=== PATIENT | male | born 1965 | race Caucasian/White ===

== ENCOUNTER 2020-08-18 02:36 | Outpatient (CLI) | payer OTHER, SELFPAY ==
--- NOTE | 2020-08-18 12:23 | DI.RAD_ITS ---
EXAM: XR CHEST 2V PA LATERAL CLINICAL HISTORY: CHRONIC RHINITIS, SOB, COUGH,R05,R06.02,J31.0 TECHNIQUE: 2D digital imaging was performed. COMPARISON: No exams were available for comparison FINDINGS: There is reported sleep apnea monitor control or position over the anterior thorax. Transponder is a lso present over the anterior thorax on the right. The heart is not enlarged. Lungs are predominantly clear, however there is question of faint promine nce interstitial markings in the lung bases bilaterally, interstitial infiltrate not excluded. No gr oss focal consolidation seen.. No pleural effusion seen. Mediastinal contours appear intact. IMPRESSION: Question mild patchy interstitial infiltrates in the lung bases, pneumonitis versus chronic changes. Follow-up films recommended. No prior films available for comparison. RADIATION DOSE DELIVERED: Total DLP
== END 2020-08-18 02:56 ==
PROVIDERS: PCP Otolaryngology Otolaryngology/Facial Plastic Surgery; Visit Provider Otolaryngology Otolaryngology/Facial Plastic Surgery
DX: R91.8 Other nonspecific abnormal finding of lung field (principal); R05 Cough; R06.02 Shortness of breath; J31.0 Chronic rhinitis
CPT/HCPCS: 71046

== ENCOUNTER 2020-08-24 02:02 | Outpatient (CLI) | payer OTHER, SELFPAY ==
[2020-08-25 20:59] LABS: COVID-19 RT-PCR UVMMC Result Negative (Negative)
== END 2020-08-24 02:22 ==
PROVIDERS: PCP Otolaryngology Otolaryngology/Facial Plastic Surgery; Visit Provider Family Medicine
DX: Z11.59 Encounter for screening for other viral diseases (principal); Z01.811 Encounter for preprocedural respiratory examination
CPT/HCPCS: U0003

== ENCOUNTER 2020-08-28 01:39 | Outpatient (CLI) | payer OTHER, SELFPAY ==
[2020-08-28] MEDS: Albuterol HFA 18 GM 200 PUFF INH IH (11:11)
[2020-08-28] MEDS: Inhaler, Assist Device 1 EACH MC (11:12)
--- NOTE | 2020-08-31 08:36 | W.PFT ---
Date of service: 08/28/20 Time of Service: 10:23 Pulmonary Function Test Result Interpretation Spirometry: Shows no evidence of obstructive airways disease, no bronchodilator response Lung Volumes: No evidence of restriction Diffusion Capacity: Normal Airway Pressure: Normal Impression Normal pulmonary function study Clinical Correlation therefore is recommended.
== END 2020-08-28 01:59 ==
PROVIDERS: Visit Provider Otolaryngology Otolaryngology/Facial Plastic Surgery
DX: R05 Cough (principal); R06.02 Shortness of breath; J31.0 Chronic rhinitis
CPT/HCPCS: 94060; 94726; 94729

== ENCOUNTER 2020-08-28 02:29 | Outpatient (CLI) | payer OTHER, SELFPAY ==
[2020-08-28 12:13] LABS: Hemoglobin A1C 5.6 % (<5.7)
[2020-08-28 13:08] LABS: ALT 103 U/L (16-63); AST 40 U/L (15-37); Albumin 4.3 g/dL (3.4-5.0); Alkaline Phosphatase 58 U/L (46-116); Anion Gap 8.5 mmol/L (3-11); BUN 20 mg/dL (7-18); Bilirubin, Total 0.7 mg/dL (0.2-1.0); CO2 29.5 mmol/L (21.0-32.0); CREATININE 1.29 mg/dL (0.70-1.30); Calcium 9.1 mg/dL (8.5-10.1); Chloride 105 mmol/L (98-107); Estimated GFR 57.41 (mL/min/1.73m2); Folate 17.7 ng/mL (8.6-20.0); Glucose 101 mg/dL (74-106); Potassium 4.3 mmol/L (3.5-5.1); Sodium 143 mmol/L (136-145); Total Protein 7.2 g/dL (6.4-8.2); Vitamin B12 1149 pg/mL (193-986)
[2020-08-31 05:53] LABS: Vitamin D 25 Total 21.6 ng/ml (30-100)
== END 2020-08-28 02:49 ==
PROVIDERS: Visit Provider Internal Medicine Sleep Medicine
DX: R53.83 Other fatigue (principal); R41.3 Other amnesia; E55.9 Vitamin D deficiency, unspecified; Z13.1 Encounter for screening for diabetes mellitus
CPT/HCPCS: 36415; 80053; 82306; 82607; 82746; 83036; 84443

== ENCOUNTER 2020-09-10 01:59 | Outpatient (CLI) | payer OTHER, SELFPAY ==
--- NOTE | 2020-09-10 19:40 | DI.RAD_ITS ---
EXAM: XR CHEST 2V PA LATERAL CLINICAL HISTORY: CHRONIC COUGH, F/U PREVIOUS WITH FINDINGS. TECHNIQUE: 2D digital imaging was performed. COMPARISON: CR XR CHEST 2V PA LATERAL from 08/18/2020 FINDINGS: Heart size is normal. The mediastinum is not widened. Sleep apnea monitor over the anterior thorax is again noted. Transponder is also present over the an terior right chest. Present study is at better inspiration in the previous and reveals clear lungs with no infiltrates no r pleural effusions are no evidence of pulmonary edema. There is no pneumothorax. IMPRESSION: No acute pulmonary findings.Better inspiration than the previous study. DATA REPOSITORY: RADIATION DOSE DELIVERED:
== END 2020-09-10 02:19 ==
PROVIDERS: Visit Provider Family Medicine
DX: R05 Cough (principal); R91.8 Other nonspecific abnormal finding of lung field
CPT/HCPCS: 71046

== ENCOUNTER 2020-10-13 03:10 | Outpatient (CLI) | payer OTHER, SELFPAY ==
[2020-10-13 12:42] LABS: Abs Immature Grans 0.02 10^3/uL (0.0-0.06); Absolute Basophil Count 0.05 10^3/uL (0.0-0.2); Absolute Eosinophil Count 0.32 10^3/uL (0.0-0.7); Absolute Lymphocyte Count 2.32 10^3/uL (1.2-3.4); Absolute Monocyte Count 0.67 10^3/uL (0.1-0.8); Absolute Neutrophil Count 3.27 10^3/uL (1.2-6.7); Basophils % 0.8; Eosinophils % 4.8; HCT 46.4 % (40.0-50.0); HGB 16.2 g/dL (13.5-17.5); Immature Grans % 0.3; Lymphocytes % 34.9; MCH 30.9 pg (27.0-33.0); MCHC 34.9 % (32.0-36.0); MCV 88.4 fL (80-95); MPV 9.2 fL (8.0-11.0); Monocytes % 10.1; Neutrophils % 49.1; Nucleated RBC 0 %; Platelet Count 247 10^3/uL (130-400); RBC 5.25 10^6/uL (4.36-5.78); RDW-SD 42.2 fL; WBC 6.65 10^3/uL (4.4-10.8)
[2020-10-13 13:08] LABS: Calculated LDL 98 mg/dL (<100); Cholesterol 149 mg/dL (<200); HDL Cholesterol 37 mg/dL (40-60); Triglyceride 74 mg/dL (<150)
== END 2020-10-13 03:11 | disposition home or self-care (01) ==
PROVIDERS: PCP Family Medicine; Visit Provider Family Medicine
DX: R06.00 Dyspnea, unspecified (principal); Z13.220 Encounter for screening for lipoid disorders; Z82.49 Family history of ischemic heart disease and other diseases of the circulatory system
CPT/HCPCS: 36415; 80061; 85025

== ENCOUNTER 2020-11-10 02:11 | Outpatient (CLI) | payer OTHER, SELFPAY ==
--- NOTE | 2020-11-10 08:18 | DI.US_ITS ---
APPROVED REPORT EXAM: Comprehensive 2D, Doppler, and color-flow Echocardiogram Patient Location: Out-Patient Court Stenographer: Babs Medina RDCS (AE) Indications: Dyspnea on Exertion Other Information Study Quality: Adequate Conclusion Left Ventricle : The left ventricle is normal size. The left ventricular systolic function is normal. The left ventricular ejection fraction is within the normal range. There is normal left ventricular wall thickness. There is normal LV segmental wall motion. The left ventricular diastolic function is normal. LVEF is 60-65%. Right Ventricle : The right ventricle is normal size. The right ventricular systolic function is norm al. The RVSP is 28.4mmHg. Atria : The left atrium size is normal. The right atrium size is normal. Mitral Valve : The mitral valve is normal in structure. Trace to mild mitral regurgitation. No eviden ce of mitral valve stenosis. Great Vessels : The aortic root is normal in size. The ascending aorta is normal in size. Aortic arch is normal in caliber. IVC is normal in size and collapses >50% with inspiration. Please see remainder of study for further details. Wall motion Left Ventricle The left ventricle is normal size. The left ventricular systolic function is normal. The left ventric ular ejection fraction is within the normal range. There is normal left ventricular wall thickness. T here is normal LV segmental wall motion. The left ventricular diastolic function is normal. There is no ventricular septal defect visualized. LVEF is 60-65%. Right Ventricle The right ventricle is normal size. The right ventricular systolic function is normal. The RVSP is 28 .4mmHg. Atria The left atrium size is normal. The right atrium size is normal. The interatrial septum is intact wit h no evidence for an atrial septal defect. Aortic Valve The aortic valve is normal in structure. Aortic valve is trileaflet. There is no aortic valvular sten osis. No aortic regurgitation is present. Mitral Valve The mitral valve is normal in structure. No evidence of mitral valve stenosis. Trace to mild mitral r egurgitation. Tricuspid Valve The tricuspid valve is normal in structure. There is no tricuspid valve stenosis. Mild tricuspid regu rgitation. Pulmonic Valve The pulmonary valve is normal in structure. There is no pulmonic valvular stenosis. Trace pulmonic re gurgitation. Great Vessels The aortic root is normal in size. The ascending aorta is normal in size. Aortic arch is normal in ca liber. IVC is normal in size and collapses >50% with inspiration. Pericardium There is no pericardial effusion. 2D Dimensions IVSD d PLAX 0.90 cm M: 0.6-1.2 LV Vol A2C d MOD 117.9 mL LVPW d PLAX 1.00 cm M: 0.6 - 1.2 LV Vol A4C d MOD 100.4 mL LVID d PLAX 4.72 cm M: 4.2 - 5.8 LA vol/ BSA A2C s A-L 30.4 mL/m2 LVDs 3.10 cm M: 2.5 - 4.0 LA vol/ BSA A4C s A-L 20.2 mL/m2 Ao Root d 3.32 cm M: 3.1 - 3.7 LA Vol/ BSA Biplane s A-L 24.9 mL/m2 RA Area A4C 13.52 cm2 LA Area A4C s MOD 16.45 cm2 RA Vol/ BSA A4C s A-L 16.2 mL/m2 LA Area A2C s MOD 20.09 cm2 Ao Asc Diam d 3.51 cm M: 2.6 - 3.4 LV EF A4C MOD 60.1 % LV EF Teichholz 63.0 % LV EF A2C MOD 64.3 % LVEF (Cedeno's) 60.99 % M: 52 - 72 LV EF Biplane MOD 61.0 % LV Volume 82.43 mL M: 62 - 150 SV 69.09 mL LV Volume Index 37.63 mL/m2 M: 34 - 74 SV Index 31.46 mL/m2 LV Vol Biplane MOD 113.3 mL FS 34.05 % M-Mode TAPSE 2.26 cm (M/F) >1.7 LV Diastology MV E' medial 0.071 (>0.07 m/s) E/A Ratio 0.9 LV E/e MED 7.90 (<14) MV E Vmax 0.56 (0.4-1.3 m/s) MV E' lateral 0.116 (>0.1 m/s) MV A Vmax 0.60 (0.4-1.3 m/s) LV E/e LAT 4.85 (<14) MV E/A Ratio 0.94 MV E/E' medial 7.91 MV E/E' lateral 4.85 Aortic Valve LVOT Area 3.36 cm2 AoV Area Vmax 2.25 cm2 LVOT Vmax 0.96 m/s AoV Area/ BSA (Vmax) 1.03 cm2/m2 LVOT Mean Justino. 0.61 m/s SALVADOR Mean Justino. 2.11 cm2 LVOT Peak Grad 3.7 mmHg SAL[place]ADOR Mean Justino. Index 0.96 cm2/m2 LVOT Mean Grad 1.8 mmHg LVOT VTI 0.201 m LVOT Diam s 2.05 cm AoV Vmax 1.43 m/s Velocity Ratio 0.67 AoV Mean Justino. 0.97 m/s AoV Peak Grad 8.2 mmHg LVOT SV 67.55 mL AoV Mean Grad 4.2 mmHg AoV VTI 0.293 m AoV Area VTI 2.30 cm2 AoV Area/ BSA (VTI) 1.05 cm/m2 Mitral Valve MV DT 263 (160-240 msec) MV PHT 76 msec MV Area PHT 2.88 cm2 MV VTI 0.248 m MV Area VTI 2.73 (4.0-6.0 cm2) Pulmonary Valve PV Vmax 1.26 (0.5-1.5 m/s) RVOT Peak Gr. 1.26 mmHg PV Peak Grad 6.4 mmHg RVOT Mean Gr. 0.60 mmHg PV Mean Grad 3.4 mmHg RVOT VTI 0.127 m PV VTI 0.230 m RVOT Vmax 0.56 m/s Tricuspid Valve TR Peak Grad 25.3 mmHg TR Vmax 2.52 m/s RA Pressure 3.00 mmHg RVSP (TR) 28.4 mmHg
== END 2020-11-10 02:31 ==
PROVIDERS: PCP Family Medicine; Visit Provider Family Medicine
DX: R06.00 Dyspnea, unspecified (principal); I34.0 Nonrheumatic mitral (valve) insufficiency
CPT/HCPCS: 93306

== ENCOUNTER 2020-12-30 14:36 | Outpatient (CLI) | payer OTHER, SELFPAY ==
--- NOTE | 2020-12-30 14:30 | DI.RAD_ITS ---
EXAM: XR SHOULDER LT COMPLETE 2+V CLINICAL HISTORY: left shoulder pain. TECHNIQUE: 2D digital imaging was performed. COMPARISON: No exams were available for comparison FINDINGS: There is no evidence of fracture nor dislocation. No obvious degenerative changes in the glenohumera l joint. No soft tissue calcifications in the subacromial space. Some small calcific densities are noted within the AC joint space. No osseous lesions. Incidentally noted is what appears to be a vagal nerve stimulator. IMPRESSION: DATA REPOSITORY: RADIATION DOSE DELIVERED:
== END 2020-12-30 14:37 | disposition home or self-care (01) ==
LOC: DIORS 14:36
PROVIDERS: PCP Family Medicine; Referring Provider Family Medicine; Visit Provider Student in an Organized Health Care Education/Training Program
DX: M25.512 Pain in left shoulder (principal)
CPT/HCPCS: 73030

== ENCOUNTER 2021-08-06 10:01 | Outpatient (CLI) | payer OTHER, SELFPAY ==
--- OUTSIDE RECORDS SUMMARY | 2021-08-06 10:05 | XMS_ITS ---
:1965 Author Care Team Providers Name Role Phone DEMETRIS ALFARO ([facility]) Primary Care Provi pia [phone] [facility] Primary Care Provider [phone] PHAN LICEA DO OTHER [phone] Allergies Code Code System Name Reaction Severity Status Onset 3640 RxNorm Doxycycline ? ? Active ? Medications Name Status Start Date Stop Date ? ? azelastine Active ? Not available febuxostat 80 mg tablet Active ? Not avai lable Take 1 tablet every day by oral route. finasteride 5 mg tablet Active ? Not avai lable Take 1 tablet every day by oral route. Flonase Allergy Relief 50 mcg/actuation nasal spray,suspension A ctive ? Not available [place] 1 spray every day by intranasal route. hydrochlorothiazide 12.5 mg tablet Active ? Not available Take 1 tablet every day by oral route. Low Dose Aspirin 81 mg tablet,delayed release Active ? Not available Take 1 tablet every day by oral route. Lunesta 3 mg tablet Active ? Not availabl e Take 1 tablet as needed by oral route at bedtime. valacyclovir 1 gram tablet Active ? Not a vailable Take 1 tablet every 12 hours by oral route. zolpidem 10 mg tablet Completed ? 11/16/2020 Take 1 tablet every day by oral route. Problems Name Status Onset Date Source ? Gout Active 07/02/2020 ? Anxiety Active 07/02/2020 ? Insomnia Active 07/02/2020 ? Hypertensive Disorder Active 07/02/2020 ? Esophagitis Active 07/02/2020 ? Alopecia Active 07/02/2020 ? Low Back Pain Active 07/02/2020 ? Sleep Apnea Active 07/02/2020 ? Headache Active 07/02/2020 ? Cough Active 07/02/2020 ? Memory Finding Active 07/02/2020 ? Palpation Active 07/02/2020 ? Attention Deficit Hyperactivity Disorder, Active 2019 ? Predominantly Inattentive Type Procedures None recorded. Results Lab Results None recorded. Past Encounters 07/19/2021 Obstructive Sleep Apnea Syndrome; Memory Impairment Idalmis Winkler MD, Board Certified Sleep Ph ysician: [address] [place] [phone], Ph. 05/24/2021 Obstructive Sleep Apnea Syndrome; Persis tent Cough; Memory Impairment Idalmis Winkler MD, Board Certified Sleep Ph ysician: [address] [place] [phone], Ph. 01/18/2021 Obstructive Sleep Apnea Syndrome; Persis tent Cough; Memory Impairment Idalmis Winkler MD, Board Certified Sleep Ph ysician: [address] [place] [phone], Ph. 11/16/2020 Obstructive Sleep Apnea Syndrome; Persis tent Cough; Memory Impairment Idalmis Winkler MD, Board Certified Sleep Ph ysician: [address] [place] [phone], Ph. 08/24/2020 Obstructive Sleep Apnea Syndrome; Persis tent Cough; Memory Impairment; Diabetes Mellitus Screening; Decreased Vitamin D; Fatigue Idalmis Winkler MD, Board Certified Sleep Ph ysician: [address] [place] [phone], Ph. Social History Tobacco Smoking Status Never Smoker Vaccine List None recorded. Plan of Care Patient Instructions Follow-up as needed. Plan for trans [place] [facility] care to [facility] if they are able to accept him as they are now a [facility] We will plan for an initial home sl eep study to get a prelminary idea of whether the current [employer] settings that you can tolerate (you think at level 4) Please record the following data for the home sleep study; TIME YOU TURNED ON DEVICE DEVICE NICOLE PERIOD 1H15M TIME YOU TURNED OFF DEVICE DEVICE SETTING (HOW MANY BARS) We will also coordinate with [employer] to do an in lab sleep study here titrating your INSPIRE device Follow up 3 month, sooner if needed Reminders Provider Appointments None recorded. ? ? Lab None recorded. ? ? Referral None recorded. ? ? Procedures None recorded. ? ? Surgeries None recorded. ? ? Imaging None recorded. ? ? Vitals 07/19/2021 02:30PM Office 30 Height Weight BMI Blood Pressure 182.88 cm 97.52 kg 29.2 kg/m2 148/95 mm[Hg] 05/24/2021 10:00AM Office 30 Height Weight BMI Blood Pressure 182.88 cm 99.79 kg 29.8 kg/m2 137/94 mm[Hg] 01/18/2021 10:45AM Office 30 Height Weight BMI Blood Pressure 182.88 cm 99.79 kg 29.8 kg/m2 140/80 mm[Hg] 11/16/2020 03:15PM New Patient 43 Height Weight BMI Blood Pressure 182.88 cm 99.79 kg 29.8 kg/m2 128/89 mm[Hg] 08/24/2020 10:30AM New Patient 43 Height Weight BMI Blood Pressure 182.88 cm 102.06 kg 30.5 kg/m2 120/80 mm[Hg]
--- OUTSIDE RECORDS SUMMARY | 2021-08-06 10:05 | XMS_ITS | Encounter Summary ---
:1965 Author Care Team Providers Name Role Phone Troy Dickson ([facility]) Primary Care Provi pia [phone] [facility] Medical Records Primary Care Provider [phone] Ja Prado DO OTHER [phone] Reason for Visit None recorded. Assessment and Plan Assessment Note I provided greater than 40 minutes in e care of this patient, more than half the time was in face to face counseling and additional time with care coordination 1. Obstructive sleep apnea syndr ome 08/24/20 transition to care, p t with very complex sleep apnea history, initially dx'ed w/ SEVERE mixed sleep apnea on HST, then tried/failed bipap-ST, then used ASV successfully but needed andrew esta to tolerate (tried many masks inclu ding ffm and nasal pillows). he then had in lab PSG to qualify for INSPIRE, switched to INSPIRE implantable device, but then moved to [place] and did not get adequate follow up. only able to tolerate level 3 at this point). Meantime due to c/o return of memory imp airment that was better on ASV but worse off any ashley tx * re-start ASV at Min EPAP 6 Max EPAP 12 PSmin 3 PSmax 10. data review suggest good tx AHI 2.6/hr * mask: gave him brevida nasal pillows t o try at home. * Rx'ed Lunesta 3mg so he can use with A SV (not ideal but confirmed on chart review and w/ pt, this has been the way for him to use it) * contact INSPIRE to see if we can do ti tration study in lab for the INSPIRE device here, as pt was told to go to [facility] and they are out of network for his insurance and [facility] which has long waitlist 11/16/20 : used ASV but stopped due to all ergies and difficulty tolerating mask from allergies. will refill lunesta in case he needs it to tolerate INSPIRE, tho pt prefers not to be on it. with device REp from [facility] Washington, INSPIRE adju stment made, dec amplitude to 1.6 (functional setting), control range 1.4 to 2.4V, pulse width changed to 120microsec, start delay and pause time same at 75m/15m and duration same at 8hrs. Pt noted this was much better. will see how he does on INSPIRE at new setting. f/u 6 to 8 weeks 01/18/21: pt reports increased tolerance and compliance from 3 to 5 days per week, usu wearing til midnight to 4am when able to use INSPIRE. he's at level 4 on his remote (est 1.8 V). notes he tried adva nced further but not tolerated and went back to the 4 setting. *Home sleep study with inspire. *awake endoscopy with inspire trained EN T d/w pt but his insurance coverage this year may pose challenge due to OON status (Dr Tai at [facility] could do this) 05/24/21: went over HST results, suggesti ng at 5 on his INSPIRE< still has residual events. he is now at 6. we will have another HST planned in late May/early Jun, contacted Nancy Washington, [facility] bauer, to arrange for mechanical engineering technologist, waiting to hear back. 07/19/2021: Meeting with inspire and going over home sleep study results. Does show inspire at 2.4 V is having benefit with treatment AHI 7.4 on home study, when compared to his AHI of 20/h on PSG pr ior to inspire placement. The difficulty mainly being patient feeling the inspire is waking him up around 2 AM and he is not able to go back to sleep until he turns it off. He is already on long-acting sleep aid, so I do not think we can opti ulises more. Moreover patient would rather get off the sleep aid and I agree that a sleep aid should not be needed long- term to tolerate using the device. For now will refill Lunesta. Plan as follows: 1. Nancy Washington will check with ENT Dr. Castro at [facility] to see whether they will do the awake endoscopy to evaluate for optimization for patient that did not have placement at their center. She will al so let me know the referral paperwork wh leslie to send to, and I will follow up with us. She will also let us know the wait time to get in. 2. If the wait time is more than ~month, recommend Nancy work with the patient directly to get him on more comfortable settings. It is okay for them to use my office if she prefers to do that. ? sleep apnea: care instruct ions ? Lunesta 3 mg tablet 2. Memory impairment 08/24/20: reports when he was compliant on ASV, it helped. but he switched to INSPIRE and due to intolerance/not optimized yet on this. he notes return of sxs. i don't see lab work done to w/o for this, will order some today, pt was agreeable 08/28/20: folate nl 17; b12 1149 - all n l. vit D lower end of nl at 21; tsh 1.9 nl. he has been advised to be on vit d at 4000 iu daily for 30 days then maintenance at 2000 iu daily Discussion Note: None recorded. Plan of Care Patient Instructions Follow-up as needed. Plan for trans michaelle of care to [facility] if they are able to accept [facility] Provider Appointments None recorded. ? ? Lab None recorded. ? ? Referral None recorded. ? ? Procedures None recorded. ? ? Surgeries None recorded. ? ? Imaging None recorded. ? ? Medications Name Start Date ? ? azelastine ? febuxostat 80 mg tablet ? Take 1 tablet every day by oral route. finasteride 5 mg tablet ? Take 1 tablet every day by oral route. Flonase Allergy Relief 50 mcg/actuation nasal spray,quiñones spension ? [place]detown 1 spray every day by intranasal route. hydrochlorothiazide 12.5 mg tablet ? Take 1 tablet every day by oral route. Low Dose Aspirin 81 mg tablet,delayed release ? Take 1 tablet every day by oral route. Lunesta 3 mg tablet ? Take 1 tablet as needed by oral route at bedtime. valacyclovir 1 gram tablet ? Take 1 tablet every 12 hours by oral route. Medications Administered None recorded. Vitals Height Weight BMI Blood Pressure 6 ft 215 lbs 29.2 kg/m2 148/95 mm[Hg] Results Lab Results None recorded. Allergies Code Code System Name Reaction Severity Onset 4420 RxNorm Doxycycline ? ? ? Problems Name Status Onset Date Source ? [...] ? Predominantly Inattentive Type Procedures None recorded. Vaccine List None recorded. Social History Tobacco Smoking Status Never Smoker What is your level of alcohol None consumption? Live alone or with others? with others Are you currently employed? N Do you have any pets? Y Notes: dog Are you blind or do you have Y Notes: j ust reading glasses difficulty seeing? Are you deaf or do you have serious N difficulty hearing? Hard of hearing or deaf in one or N both ears? What is your level of caffeine Occasional Notes: few cups of coffee a consumption? day Functional Status Are you blind or do you Yes have difficulty seeing?? Past Encounters 07/19/2021 Obstructive Sleep Apnea Syndrome; Memory Impairment Idalmis Winkler MD, Board Certified Sleep Ph ysician: [address] [place] [address] [address], [place] [address], Ph. History of Present Illness Note: <div>
</div><div>
</div><p>Bc De Paz is a pleasant </p><div>{{____ 56#}} year old {{female male*}} who returns for [facility] follow up.

I requested Nancy Washington who is a rep from [facility] to be present for the meeting so we can help coordinate. She also invited Hai who is a regional rep from [facility]. They were both on zoom while the patient and I were in the clinic room.
</div><p>Medicalhistory includes ADHD, asthma, complex sleep apnea, depression, eosinophillic esophagitis, hypertension, neck pain, trigeminal neuralgia</p><div>
</div><p><strong> PREVIOUS SLEEP EVALUATION: </strong></p><div>
</div><div><b r></div><p>Sleep Clinic consultation on 08/30/2018 with Kerry Betancourt NP / Dr Delgado in [facility] in [facility], noted pt was recently diagnosed with severe complex sleep apneatreated w/ bipap ST 14/4cmH2O back up rate 10 bpm using full face mask during night of study. Difficulty tolerating bipap during sleep study, synchronizing w/ machine breaths, feeling like he'sblasting with air before he felt ready to take next breath. Cites issues w/ memory impairment, rls, insomnia. DME Rx for bipap 14/4cm br 10bpm. Also note</p><div>
</div><p>11/08/18 sleep clinic follow up with Hitesh Verduzco MD at [facility] in [place], note:</p><p>home sleep study 05/23/18 AHI 35/hr, 122 centrals, 39 obstructive, 1 mixed, 170 hypopneas (unclear obstructive or centrals). CPAP titration sleep study showed cpap worsened central apnea component and ultimately BIPAP ST 14/4 with rate 10bpm resulted in AHI 5.7/hr. Note pt had difficulty tolerating this pressure at home and also mask intolerance. Has some claustrophobia. Also note very bad insomnia for many years, was on zolpidem for years, but stopped due to concern of side efx. ESS 3. + morning headaches. Note he is on ASV machine, after ASV titration study reducing AHI to 5.1/hr, noted needing alprazolam to keep mask on, but no download and those results are not avail for review. Rx'ed lunesta 3m for short term use. If ASV fails, discussed transvenous phrenic nerve stimulation/remede device, would need diagnostic PSG with AHI >20 50% of centrals or more.</p><div>
</div><p>Diagnostic PSG on 10/01/2019 (Wt 219 lbs on last clinic note) showed AHI 20.5/hr, RDI 28.4/hr; REM AHI 16.7/hr, Central apnea index 4.7/hr. Baseline O2 93.6%. Juan O2 89%. No PLMD. PVCs seen.</p><div>
</div><p>Patient transitioned to my care on 08/24/2020, noted for having INSPIRE device activated but no follow up after that due to moving away from [place], not tolerating.</p><div>
</div><p>Home Sleep Study on INSPIRE 04/07/21 at level 4 on his remote (est 1.8 V), at wt 220 lbs.</p><div>
</div><p>1. Inconclusive home sleep study. Patient reported waking up at 2 am torealize he had not leanred INSPIRE device, and turned on around 2am, with mary period 1+ hour, hence likely had INSPIRE in effect at around 3:15am. Interestingly, there appeared to be more events in the second half of the night, but this could be due to increased REM sleep periods, which home sleep study is unable to evaluate.</p><div>
</div><p>2. Overall AHI: 4.6/hr; Supine AHI: 5/hr; Right Lateral AHI:4 /hr; Left Lateral AHI: 0/hr; Prone AHI: N/A/hr.</p><div>
</div><p>3. Mean SpO2: 95% and Juan SpO2: 92% on Room Air; 0.0 minutes spent with SpO2 less than or equal to 88% on Room Air.</p><div>
</div><p>4. Poor equipment placement for abdominal and chest belts, which were suboptimal for most of the night.</p><div>
</div><div>Repeat home sleep study on inspire level7 (equivalent to 2.4 V) pulse width 120 µs on 06/11/2021 at 220 pounds/BMI 29.8 showed:</div><div>1. Mild Residual Sleep Apnea associated with significant nocturnal hypoxemia. There wasa </div><div>lot of pulse oximetry artifact toward end of night so oxygen saturation levels may not be </div><div>accurate. Multiple respiratory events may also be missed as they could not be scored </div><div>without pulse oximetry data. The respiratory events appea red to be mostly obstructive, </div><div>but there may also be central apneic events that were not so clearly seen due to limitation </div><div>of HST and poor respiratory belt signals. </div><div>2. Overall AHI: 7.4/hr; Supine AHI: 7/hr; Right Lateral AHI:15 /hr; Left Lateral AHI: 4/hr; </div><div>Prone AHI: N/A/hr. </div><div>3. Mean SpO2:92% and Juan SpO2: 85% on Room Air; 18.9 minutes spent with SpO2 less </div><div>than or equal to 88% on Room Air. </div><div>
</div><p><strong>TODAY: USING INSPIRE, level 6. He went to level 7, but had to dial back to 6 because he would wake up around 2 AM and be woken up by the inspire. Even at 6 he is having this but less so compared to 7. That would be the equivalent of 2.3 V</strong></p><p>He is still relying on the sleep aidLunesta 3 mg to be able to sleep especially with the inspire </p><div>
</div> Review of Systems ? Notes: <p>A 14-point <strong>REVIEW OF SYSTEM</strong> was obtained and reviewed, includes CONSTITUTIONAL, EYE S, ALLERGY, NEUROLOGIC, ENDOCRINE, GI, CARDIOVASCULAR, SKIN, MSK, E NT, , RESPIRATORY, HEMATOLOGIC, PSYCH systems. Pertinent symptoms are discu ssed in history, otherwise negative.</p><div>He notes that perhaps there is a little bit of a cough reflex from the wires that he feels with the inspire</d iv> Physical Exam ? Notes: <p>GENERAL: </p><div>{{chron ically ill appearing well appearing#}}, appearing {{older than younger than st ated#}} age, no acute distress
HEENT: atraumatic skull, anicteric< br>RESPIRATORY: quiet respiration, able to speak in full sentences without dy spnea, no accessory muscle use,
SKIN: no facial skin rash, no facial skin le sions
PSYCHIATRIC: well groomed, fluent speech, good insight, linear thought process, good eye contact, {{flat balanced#}} affect
NEUROLOGIC: alert, oriented, symmetric facial expression

<strong>Cl inical Data Reviewed:</strong>

1. {{Modified Pediatric [place] Sleepiness Scale Rose[place] Sleepiness Scale*}}: 13 out of {{21 due to not drivi ng 24#}}vs 12 last visit
</div><div>
< /div><div>
</div><p>2. </p><div>{{Sleep study results not available, requested Unable to obtain sleep study reports No sleep study reports Sleep st udy results as above.#}}

3. {{Lab results as outlined. * Labs pending. }}
TSH 1.9; vit D level 21; Ha1c 5.6</div><div>
</div>< div>
</div><p>4. Reviewed ENT note: allergy test, allergitic rhinitis an d elevated bp. reacted to trees, weeds, grasses, molds, DM, animal dander. no te on tawanda, singulair, astelin.</p><div>
</div>< p>5. CXR ordered by Dr Prado on 08/18/20</p><p>note sleep private chef ea device on CXR over anterior thorax, transponder over anterior thorax on righ t. mild patchy interstitial infiltrates in lung bases, pneumonitis vs chroni c changes.</p><div>
</div><p>6. original configuration: functional th reshold at 1.6, moves tongue pass incisors</p><p>change pulse rate 1: functional threshold at 1.5</p><div>
</div><p> INSPIRE settings, amplitude at 2.0 V; Patient control 1.9 to 2.9 V; pulse width 90 micro sec; delay start 76m; pause time 15 m; therapy duration 8h</p><d iv>
</div><p>7. ASV data not obtained due to decreased usage and pt wants to focus on using INSPIRE going fwd</p>
--- OUTSIDE RECORDS SUMMARY | 2021-08-06 10:05 | XMS_ITS | Encounter Summary ---
:1965 Author Care Team Providers Name Role Phone Troy Dickson ([facility]) Primary Care Provi pia [phone] [facility] Medical Records Primary Care Provider [phone] Ja Prado DO OTHER [phone] Reason for Visit None recorded. Assessment and Plan Assessment Note I provided greater than 40 minutes in th e care of this patient, more than [...] INSPIRE implantable device, but [place] and did not get adequate follow up. Need to get repeat PSG to tit rate/very setting (he is only able to tolerate level 3 at this point). Meantime due to c/o return of memory imp airment that was better on ASV but worse off any ashley tx * re-start ASV at Min EPAP 6 Max EPAP 1 2 PSmin 3 PSmax 10. data review suggest good tx AHI 2.6/hr * mask: gave him brevida nasal pillows t o try at home. * get re-established w/ local DME compan y, chose [facility] if that one accepts his insurance. * Rx'ed Lunesta 3mg so he can use with A SV (not ideal but confirmed on chart review and w/ pt, this has been the way for him to use it) * contact [employer] to see if we can do ti tration study in lab for the INSPIRE device here, as pt was told to go to [facility] and they are out of network for his insurance and [facility] which has long waitlist 3/8/21 : used ASV but stopped due to all ergies and difficulty tolerating mask from allergies. thinks the mask i gave him last time wasn't right size (it's one size mask so likely not good fit). he is ne eding lunesta to tolerate Pap therapy. w ill refill lunesta in case he needs it to tolerate INSPIRE, tho pt prefers not to be on it. with device REp from [employer] [place], INSPIRE adjustment made, de c amplitude to 1.6 (functional setting), control range 1.4 to 2.4V, pulse width changed to 120microsec, start delay and pause time same at 75m/15m and duration same at 8hrs. Pt noted this was much aleida r. will see how he does on INSPIRE at ne w setting. f/u 6 to 8 weeks 01/18/21: pt reports increased tolerance and compliance from 3 to 5 days per week, usu wearing til midnight to 4am when able to use INSPIRE. he's at level 4 on his remote (est 1.8 V). notes he tried adva nced further but not tolerated and went back to the 4 setting. * arrange for home sleep study wearing I NSPIRE. will check if we have apnealink AIR HST kit which is the compliant model w/ his device * also d/w Nancy [place] getting download on INSPIRE device which she will arrange w/ pt separately and in lab PSG titration (pref optimize pt's setting/tolerance before we do in lab PSG). awake endoscop y also discussed but his insurance cover age this year may pose challenge due to OON status (Dr Tai at [facility] could do this) 05/24/21: went over HST results, suggesti ng at 5 on his INSPIRE< still has residual events. he is now at 6. we will have another HST planned in late May/early Jun, then arrnage for in lab PSG with IN SPIRE tech. contacted Nancy Washington, [employer] rep, to arrange for lead slot technician, waiting to hear back. ? sleep apnea: care instruct ions ? Lunesta 3 mg tablet ? Home Sleep Apnea Testing* - Second Home Sleep Study in preparation for In lab sleep study: Please document curr ent level on his remote. As of 05/24, he reported being on level 5. PLEASE NOTIFY FRANK AND ASK HIM TO REVIEW THIS CLOSELY as he is familiar w/ patient's case. Pt has INSPIRE device implanted in his chest. He needs home sleep study, the compatible m adri is ApneaLink Air - please check this is the new kits that we have and then set p atient up. He needs to DOCUMENT FOLLOWING ON HIS HST NIGHT: TIME YOU TURNED ON DEVICE DEVICE MARY PERIOD 1H15M TIME YOU TURNED OFF DEVICE DEVICE SETTING (HOW MANY BARS ) ? sleep study, baseline diag nostic polysomnogram* - Plan to do this in Jul 2021 at : * [facility]IRE patient. * Ple ase Assign Frank to this case, he's familiar w/ this patient's history. * need to arr lonny with [employer] lead slot technician who can be present on that night, I've contacted [facility] on 05/24/21 already, waiting for her reply. Instructions will be arra nged as we make further arrangements with [employer]. Need to document pat ient settings , will need documentation guidelines from [employer]. 2. Persistent cough 08/24/20: pending PFTs. Pt had CXR last week mild patchy interstitial infiltrates in lung bases, pneumonitis vs chronic changes. pt says he had CXR in past w/o this finding but dont have a ccess to those records from [place]. he was told he should seen pulmonary but waiting on PCP, who he still need to establish with. will do referral for Dr Smith in pulm. 11/16/20: pt cancelled this apptmt due to Dr Smith departure 3. Memory impairment 08/24/20: reports when he was [...] Discussion Note: None recorded. Plan of Care Reminders Provider Appointments None ? ? recorded. Lab None ? ? recorded. Referral None ? ? recorded. Procedures None ? ? recorded. Surgeries None ? ? recorded. Imaging None ? ? recorded. Medications Name Start Date ? ? azelastine ? febuxostat 80 mg tablet ? Take 1 tablet every day by oral route. finasteride 5 mg tablet ? Take 1 tablet every day by oral route. Flonase Allergy Relief 50 mcg/actuation nasal spray,quiñones spension ? [place] 1 spray every day by intranasal route. [...] Height Weight BMI Blood Pressure 6 ft 220 lbs 29.8 kg/m2 137/94 mm[Hg] Results Lab Results None recorded. Allergies Code Code System Name Reaction Severity Onset 3640 RxNorm Doxycycline ? ? ? Problems Name [...] you Yes have difficulty seeing?? Past Encounters 05/24/2021 Obstructive Sleep Apnea Syndrome; Persis tent Cough; Memory Impairment Idalmis Winkler MD, Board Certified Sleep Ph ysician: [address] [place] [address] Drive [address], [place] [address], Ph. History of Present Illness Note: <p><strong></strong>

Bc De Paz is a pleasant </p>{{55# ____}} year old {{female male*}} who returns for INSPIRE follow up.
<p></p><p>
Medical history includes ADHD, asthma, complex sleep apnea, depression, eosinophillic esophagitis, hypertension, neck pain, trigeminal neuralgia

<strong>PREVIOUS SLEEP EVALUATION: </strong></p><p></p><p></p><p>Sleep Cl inic consultation on 08/30/2018 with Kerry Betancourt FRAME FEEDER / Dr Hitesh Verduzco in [facility] in [place], noted pt was recently diagnosed with severe complex sleep apnea treated w/ bipap ST 14/4cmH2O back up rate 10 bpm using full face mask during night of study. Difficulty tolerating bipap during sleepstudy, synchronizing w/ machine breaths, feeling like he's blasting with air before he felt ready totake next breath. Cites issues w/ memory impairment, rls, insomnia. DME Rx for bipap 14/4cm br 10bpm. Also note</p><p>
</p><p>11/08/18 sleep clinic follow up with Hitesh Verduzco MD at [facility] in [place], note:</p><p>home sleep study 05/23/18 AHI 35/hr, 122 [...] alprazolam to keep mask on, but no downloadand those results are not avail for review. Rx'ed lunesta 3m for short term use. If ASV fails, discussed transvenous phrenic nerve stimulation/remede device, would need diagnostic PSG with AHI >20 50% of centrals or more.</p><p>
</p><p>Diagnostic PSG on 10/01/2019 (Wt 219 lbs on last clinic note) showed AHI 20.5/hr, RDI 28.4/hr; REM AHI 16.7/hr, Central apnea index 4.7/hr. Baseline O2 93.6%. Juan O2 89%. No PLMD. PVCs seen.</p><p>
</p><p>Patient transitioned to my care on 08/24/2020, noted for having INSPIRE device activated but no follow up after that due to moving away from [place], not tolerating.</p><p>
</p><p>Home Sleep Study on INSPIRE 04/07/21 at level 4 on his remote (est 1.8 V), at wt 220 lbs.</p><p>
</p><p>1. Inconclusive home sleep study. Patient reported waking up at 2 am to realize he had not leanred INSPIRE device, and turned on around 2am, with mary period 1+ hour, hence likely had INSPIRE in effect at around 3:15am. Interestingly, there appeared to be more events in the second half of the night, but this could be due to increased REM sleep periods, which home sleep study is unable to evaluate.
</p><p>2. Overall AHI: 4.6/hr; Supine AHI: 5/hr; Right Lateral AHI:4 /hr; Left Lateral AHI: 0/hr; Prone AHI: N/A/hr.<br& gt;</p><p>3. Mean SpO2: 95% and Juan SpO2: 92% on Room Air; 0.0 minutes spent with [id number] than or equal to 88% on Room Air.
</p><p>4. Poor equipment placement for abdominal and chest belts, which were suboptimal for most of the night.
</p><p>&lt ;br></p><p>
</p><p><strong>TODAY: USING INSPIRE, level 5, able to advance slightly, slowly</strong></p><p>on lunesta 3mg, no sleepeating or wa lking on this<strong></strong></p> Review of Systems ? Notes: <p>A 14-point <strong>REVIEW OF SYSTEM</strong> was obtained and reviewed, includes CONSTITUTIONAL, EYE S, ALLERGY, NEUROLOGIC, ENDOCRINE, GI, CARDIOVASCULAR, SKIN, MSK, E NT, , RESPIRATORY, HEMATOLOGIC, PSYCH systems. Pertinent symptoms are discu ssed in history, otherwise negative.
</p><p>notes cough, heartburn, he thinks they are connected</p><p>
</p> Physical Exam ? Notes: <p>GENERAL: </p>{{well appea ring# chronically ill appearing}}, appearing {{stated# older than younger than}} age, no acute distress
HEENT: atraumatic skull, anicteric< br>RESPIRATORY: quiet respiration, able to speak in full sentences without dy spnea, no accessory muscle use,
SKIN: no facial skin rash, no facial skin lesions
PSYCHIATRIC: well groomed, fluent speech, good insight, linear thought process, good eye contact, {{balanced# flat}} affect
NEUROLOGIC: alert, oriented, symmetric facial expression

<strong>Cl inical Data Reviewed:</strong>

1. {{Modified Pediatric Brunswick Sleepiness Scale Brunswick Sleepiness Scale*}}: 12 out of {{24# 21 due to not d riving}}vs 16 last visit
<p></p><p>
2. </p>{{Sleep study results as above.# Sleep study results not available, requested Unable to obtain s leep study reports No sleep study reports}}

3. {{Lab re sults as outlined. * Labs pending. }}
TSH 1.9; vit D level 21; Ha1c 5.6<p>< /p><p>
4. Reviewed ENT note: allergy test, allergitic rhinitis and elev ated bp. reacted to trees, weeds, grasses, molds, DM, animal dander. note on a mika sinclair astelin.</p><p>
</p><p>5. CXR ordered by Dr Ang novak on 08/18/20</p><p>note sleep apnea device on CXR over anterior thorax, transp onder over anterior thorax on right. mild patchy interstitial infiltrates in lung bases, pneumonitis vs chronic changes.</p><p>
</p><p>6. original configuration: functional threshold at 1.6, moves tongue pass incis ors</p><p>change pulse rate 1: functional threshold at 1.5</p><p>
< /p><p>INSPIRE settings, amplitude at 2.0 V; Patient control 1.9 to 2.9 V ; pulse width 90 micro sec; delay start 76m; pause time 15 m; therapy duration 8h</p><p>
</p><p>7. ASV data not obtained due to decreased usage and p t wants to focus on using INSPIRE going fwd</p>
[2021-08-07 11:09] LABS: COVID-19 RT-PCR UVMMC Result Negative (Negative)
== END 2021-08-06 10:02 | disposition home or self-care (01) ==
LOC: LBO 10:04
PROVIDERS: PCP Family Medicine; Visit Provider Nurse Practitioner Acute Care
DX: Z20.822 Contact with and (suspected) exposure to COVID-19 (principal)
CPT/HCPCS: U0003

== ENCOUNTER 2022-07-04 03:28 | Outpatient (CLI) | payer OTHER, SELFPAY ==
[2022-07-04 11:47] LABS: HCT 44.9 % (40.0-50.0); MCH 31.6 pg (27.0-33.0); MCHC 35.6 % (32.0-36.0); MCV 89 fL (80-95); MPV 9.8 fL (8.0-11.0); Platelet Count 213 10^3/uL (130-400); RBC 5.07 10^6/uL (4.36-5.78); RDW 12.8 % (11.8-14.1); RDW-SD 41.5 fL; WBC 5.51 10^3/uL (4.4-10.8)
[2022-07-04 12:25] LABS: ALT 51 U/L (16-63); AST 22 U/L (15-37); Albumin 4.2 g/dL (3.4-5.0); Alkaline Phosphatase 52 U/L (46-116); Anion Gap 6.6 mmol/L (3-11); BUN 17 mg/dL (7-18); Bilirubin, Total 1.1 mg/dL (0.2-1.0); C-Reactive Protein 0.36 mg/dL (0.0-0.3); CO2 32.4 mmol/L (21.0-32.0); CREATININE 1.1 mg/dL (0.70-1.30); Calcium 9.3 mg/dL (8.5-10.1); Chloride 102 mmol/L (98-107); Estimated GFR 77.33 (mL/min/1.73m2); Glucose 98 mg/dL (74-106); Potassium 3.3 mmol/L (3.5-5.1); Sodium 141 mmol/L (136-145); TSH 1.81 uIU/mL (0.36-3.74); Total Protein 7.4 g/dL (6.4-8.2); Uric Acid 9.4 mg/dL (3.5-7.2)
[2022-07-04 12:33] LABS: Vitamin D 25 Total 22.3 ng/mL (30-100)
[2022-07-04 12:42] LABS: Hemoglobin A1C 5.4 % (<5.7)
[2022-07-04 12:48] LABS: Calculated LDL 67 mg/dL (<100); Cholesterol 128 mg/dL (<200); HDL Cholesterol 47 mg/dL (40-60); Triglyceride 74 mg/dL (<150)
[2022-07-04 22:50] LABS: PSA, Screening 0.5 ng/mL (<=3.5)
[2022-07-15 12:02] LABS: Testosterone, Free 12.5 ng/dL (3.87-14.7); Testosterone, Total 670 ng/dL (240-950)
== END 2022-07-04 03:29 | disposition home or self-care (01) ==
LOC: LBO 03:28
PROVIDERS: PCP Family Medicine; Visit Provider Family Medicine
DX: Z00.00 Encounter for general adult medical examination without abnormal findings (principal); Z13.220 Encounter for screening for lipoid disorders; Z13.1 Encounter for screening for diabetes mellitus; Z13.0 Encounter for screening for diseases of the blood and blood-forming organs and certain disorders involving the immune mechanism; Z12.5 Encounter for screening for malignant neoplasm of prostate
CPT/HCPCS: 36415; 80053; 80061; 82306; 84153; 84402; 84403; 85027; 83036; 84443; 84550; 85025; 86140

== ENCOUNTER 2022-12-30 14:48 | Outpatient (CLI) | payer OTHER, SELFPAY ==
--- NOTE | 2022-12-30 14:45 | RT.EKG_ITS ---
APPROVED REPORT Exam: Resting ECG Reason for Exam: Pre-Op Exam Patient Location: O HR:72 bpm ECG Measurements Heart Rate [address] 194 P 57 QRSd 91 QRS 27 QT 383 T 49 QTc 420 Conclusion Sinus rhythm...normal P axis, V-rate 50- 99 Normal Electrocardiogram
== END 2022-12-30 14:49 | disposition home or self-care (01) ==
LOC: DI.KIM 14:50
PROVIDERS: PCP Family Medicine; Visit Provider Family Medicine
DX: Z01.818 Encounter for other preprocedural examination (principal)
CPT/HCPCS: 93010